=== PATIENT | male | born 1990 | race Caucasian/White ===

== ENCOUNTER 2025-02-18 05:34 | Emergency (ER) | payer BC, SELFPAY ==
--- OUTSIDE RECORDS SUMMARY | 2025-02-18 05:35 | XMS_ITS | Clinical Summary ---
Author Organization [facility] Address [address] [place] [id number] Care Team Providers Care Serging Machine Operator Name Role Phone Lissett Garcia MD Primary Care Prov ider Allergies No known active allergies Medications sertraline 100 mg tabletIndications :Anxiety disorder, unspecified type Take 1 Tablet (100 mg) by mouth once daily in the morning. 90 Tablet 1 09/19/19 25 Active methylphenidate ER (Concerta) 36 mg extended release tabletIndications :Attention deficit hyperactivity disorder (ADHD), unspecified ADHD type Take 2 Tablets (72 mg) by mouth once daily. 60 Tablet 11/30/19 25 Active methylphenidate 36 mg extended-release tabletIndications :Attention deficit hyperactivity disorder (ADHD), unspecified ADHD type Take 2 Tablets (72 mg) by mouth once daily. 60 Tablet 01/30/20 25 Active methylphenidate ER (Concerta) 36 mg extended release tabletIndications :Attention deficit hyperactivity disorder (ADHD), unspecified ADHD type Take 2 Tablets (72 mg) by mouth once daily. 60 Tablet 12/30/19 25 025 Discontinued Active Problems Problem Noted Date Diagnosed Date Anxiety disorder 09/18/2024 Autism spectrum disorder 06/05/2023 Controlled substance agreement signed 07/19/2021 Overview (07/19/2021): 07/19/21 Gladys Monzon MD/psychiatry Other specified attention de ficit hyperactivity disorder (ADHD) 07/05/2012 Severe episode of recurrent major depressive disorder, without psychotic features 07/05/2012 Resolved Problems Problem Noted Date Diagnosed Date Resolved Date Controlled substance agreement signed 03/18/2019 07/19/2021 Overview (03/18/2019): Signed 03/14/19 Gladys Monzon Psychiatry Bipolar disorder, mixed 02/21/201907/05 Encounters Date Type Department Care Team Description 01/29/2025 Refill [facility] [address] [place] [address] Gladys Monzon MD Refill Request (Methylphenidate) from Last 3 Months Immunizations Immunization Administration Dates Next Due Hepatitis B (Peds) 03/16/2000 Hepatitis B, Unspecified 10/13/2004,03/24/2004,0 01/30/2004,03/16/2000 Influenza Virus, Unspecified 04/02/2018,06/22/20 12,06/14/2008,05/11/2007 Influenza, IIV3 (Age 6-35 mos) 06/22/2012 Influenza, IIV3 (Age >=3 years) 06/14/2008 MMR 01/16/2004,03/16/2000 TD, UNSPECIFIED 01/16/2004 Td (Age >=7 Years) 01/16/2004 Tdap 12/24/2018 Family History Medical History Relation Name Comments Cancer Father Colonic polyp Father precancer Hypertension Father Diabetes Maternal Grandfather Diabetes Maternal Grandmother Skin cancer Mother Cancer Paternal Grandfather lung, w as a smoker Relation Name Status Comments Father Alive Maternal Grandfather Maternal Grandmother Mother Alive Paternal Grandfather Social History Tobacco Use Types Packs/Day Years Used Date Smoking Tobacco: Never Smokeless Tobacco: Never Tobacco Cessation:Counseling Given: Yes Alcohol Use Standard Drinks/Week Comments Not Currently 0 (1 standard drink = 0.6 oz pur e alcohol) PHQ-2 Answer Date Recorded PHQ-2 TOTAL SCORE 1 10/30/2024 Social Connections Answer Date Recorded Do you often feel lonely or isolated from those around you? 0 11/06/2024 Financial Resource Strain Answer Date R ecorded Difficulty of Paying Living Expenses 3 11/06/2024 Difficulty of Paying Living Expenses Not on file 11/06/2024 Food Insecurity Answer Date Recorded Do you worry your food will run out before you are able to buy more? 1 11/06/2024 Transportation Needs Answer Date Record ed Does lack of transportation keep you from medica l appointments? 1 11/06/2024 Does lack of transportation keep you from work, meetings or getting things that you need? 1 11/06/2024 Housing Stability Answer Date Recorded What is your housing situation today? 1 11/06/2024 Utilities Answer Date Recorded Do you have trouble paying f or utilities (for example, heat, electricity, water, phone)? 1 11/06/2024 Sex and Gender Information Value Date Recorded Sex Assigned at Not on file Legal Sex Male 8:43 AM CONSTRUCTION TRENCH DIGGER Gender Identity Not on file Sexual Orientation Not on file Obstetrics History Last Filed Vital Signs Vital Sign Reading Time Taken Comments Blood Pressure 118/78 11/06/2024 4:00 PM CDT Pulse 122 11/06/2024 4:00 PM CDT Temperature 36.5 C (97.7 F) 02/21/2019 9:18 AM CDT Respiratory Rate - - Oxygen Saturation 97% 11/06/2024 4:00 PM CDT Inhaled Oxygen Concentration - - Weight 142 kg (313 lb) 10/30/2024 11:44 AM CDT Height 184 cm (6' 0.44) 12/04/2023 2:24 PM CDT Body Mass Index 41.94 12/04/2023 2:24 PM CDT Plan of Treatment Upcoming Encounters Date Type Department Care Team (Late st Contact Info) Description 03/19/2025 9:45 AM CDT Office Visit [facility] [address] [place] [address] Gladys Monzon MD [address] [place] [address] Health Maintenance Due Date Last Done Comments COVID-19 vaccine series ( season) 2024 11/20/2020 BMI (ht and wt on same day) for age 18+ 12/03/2024 12/04/2023, 12/19/2019, 08/14/2019, Additional history exists Influenza Vaccine (#1) 2025 8, 06/22/2012, 06/22/2012, Additional history exists Depression screening for age 12+ 10/30/2025 10/30/2024, 10/30/2024, 09/18/2024, Additional history exists Tetanus booster 12/24/2028 12/24/2018, 12/31, 01/16/2004 Hepatitis B series for 19+ Completed 10/13, 03/24/2004, 01/30/2004, Additional history exists HIV for age 15-65 Completed 07/12/2022 Hepatitis C screening for age 18-79 Completed 07/12/2022 Pneumococcal series for age 6-49 Aged Out No longer eligible based on patient's age to complete this topic Procedures Procedure Name Priority Date/Time Associated Diagnosis Comments LC HIV-1/O/2, 4TH GENERATION Routine 07/12/2022 2:46 PM CONSTRUCTION TRENCH DIGGER Encounter for screening for HIV LC HCV ANTIBODY RFX TO QUANT PCR Routine 07/12/2022 2:46 PM CONSTRUCTION TRENCH DIGGER Need for hepatitis C screening test from Last 3 Months or Most Recently Relevant to Health Maintenance Results * LC HCV ANTIBODY RFX TO QUANT PCR (07/12/2022 2:46 PM CONSTRUCTION TRENCH DIGGER) HCV Ab <0.1 0.0 - 0.9 s/co ratio 07/15/2022 4:08 PM CONSTRUCTION TRENCH DIGGER [facility] Blood BLOOD SPECIMEN / Unknown Venipuncture / Unknown 07/12/2022 2:46 PM CONSTRUCTION TRENCH DIGGER 07/12/2022 2:46 PM CONSTRUCTION TRENCH DIGGER Narrative [facility] ([facility]) - 07/15/2022 4:08 PM CONSTRUCTION TRENCH DIGGER Performed at: [address] [place] [id number] Needle Polisher: Wilfredo Garcia MD, Phone: [phone] [facility] Final Resu lt [facility] ([facility]) [address] [place] [id number], * LC HIV-1/O/2, 4TH GENERATION (07/12/2022 2:46 PM CONSTRUCTION TRENCH DIGGER) HIV Scr 4th Gen Non Reactive Non Reactive 07/15/2022 3:07 AM CONSTRUCTION TRENCH DIGGER [facility] ([facility]) Comment: HIV Negative HIV-1/HIV-2 antibodies and HIV-1 p24 antigen were NOT detected. There is no laboratory evidence of HIV infection. Blood BLOOD SPECIMEN / Unknown Venipuncture / Unknown 07/12/2022 2:46 PM CONSTRUCTION TRENCH DIGGER 07/12/2022 2:46 PM CONSTRUCTION TRENCH DIGGER Narrative [facility] ([facility]) - 07/15/2022 3:07 AM CONSTRUCTION TRENCH DIGGER Performed at: [address] [place] [id number] Needle Polisher: Wilfredo Garcia MD, Phone: [phone] [facility] Final Resu lt [facility] ([facility]) [address] [place] [address], from Last 3 Months or Most Recently Relevant to Health Maintenance Insurance [facility] Care Teams Serging Machine Operator Relationship Specialty Start Date End Date Lissett Garcia MD [address] [place] [address] PCP - General Family Practice 10/30/24
--- OUTSIDE RECORDS SUMMARY | 2025-02-18 05:35 | XMS_ITS | Clinical Summary ---
Author Organization [facility] Address [address] [place] [id number] Care Team Providers Care Supply Requirements Officer Name Role Phone Kyaw Miller DO Primary Care Provider Allergies No known active allergies Medications lamoTRIgine (LAMICTAL) 25 MG tablet Active methylphenidate (RITALIN LA) 10 MG 24 hr capsule Take 72 mg by mouth Active Active Problems Problem Noted Date Diagnosed Date Bipolar disorder, current episode mixed, moderat e 08/16/2018 Autism spectrum disorder 09/14/2015 ADHD (attention deficit hyperactivity disorder) 09/14/2015 Immunizations Immunization Administration Dates Next Due Flu, Unspecified 04/02/2018,06/22/2012, 8,05/11/2007 HepB, Unspecified 10/13/2004,03/24/2004,01/30/20 04,03/16/2000 MMR (MMRII) 01/16/2004,03/16/2000 TDAP (Adacel,Boostrix) 12/24/2018 Td,adult,historic,unspecified 01/16/2004 Family History Medical History Relation Comments Diabetes Maternal Aunt Diabetes Maternal Grandfather Diabetes Maternal Grandmother Diabetes Maternal Uncle Relation Status Comments Maternal Aunt Maternal Grandfather Maternal Grandmother Maternal Uncle Social History Tobacco Use Types Packs/Day Years Used Date Smoking Tobacco: Passive Smo ke Exposure - Never Smoker Smokeless Tobacco: Never Alcohol Use Standard Drinks/Week Comments No 0 (1 standard drink = 0.6 oz pur e alcohol) Adolescent Education Answer Date Record ed Getting School Help Needed Not on file 04/16 Sex and Gender Information Value Date Recorded Sex Assigned at Not on file Legal Sex Male 4:37 AM TANK RIVETER Gender Identity Not on file Sexual Orientation Not on file Last Filed Vital Signs Vital Sign Reading Time Taken Comments Blood Pressure 150/84 11/12/2018 1:22 PM CDT Pulse - - Temperature 36.9 C (98.5 F) 11/12/2018 1:22 PM CDT Respiratory Rate 18 11/12/2018 1:22 PM CDT Oxygen Saturation 98% 11/12/2018 1:22 PM CDT Inhaled Oxygen Concentration - - Weight 125.2 kg (276 lb) 12/24/2018 3:36 PM CDT Height 183.6 cm (6' 0.3) 12/24/2018 3:36 PM CDT Body Mass Index 37.12 12/24/2018 3:36 PM CDT Plan of Treatment Not on file Insurance * Guarantor: EDITH BARBA Relation to Patient Date of Phone Billing Address Personal/Family [address] [place] [phone] [facility] Care Teams Supply Requirements Officer Relationship Specialty Start Date End Date Kyaw Miller DO PCP - General Internal Medicine 11/12/18
--- OUTSIDE RECORDS SUMMARY | 2025-02-18 05:35 | XMS_ITS | Clinical Summary ---
Author Organization [facility] Address [address] [place] [id number] Care Team Providers Care Pit Shoveler Name Role Phone Ruben, Primary Care Provider Unavailabl e Md Ruben Unavailable Unavailable Allergies No known active allergies Medications ARIPiprazole (ABILIFY) 5 mg oral tablet Take by mouth once daily. Active METHYLPHENIDATE HCL (CONCERTA ORAL) Take 72 mg by mouth. Active Miscellaneous Medical Supply Knee scooter for rental or purchase. Length of need is 8 weeks. Diagnosis his Lisfranc ligament tear 1 each 1 8 Active lamotrigine (LAMICTAL ORAL) Take by mouth. Active Social History Tobacco Use Types Packs/Day Years Used Date Smoking Tobacco: Never Smokeless Tobacco: Never Sex and Gender Information Value Date Recorded Sex Assigned at Not on file Legal Sex Male 8:10 AM CDT Gender Identity Not on file Sexual Orientation Not on file Last Filed Vital Signs Vital Sign Reading Time Taken Comments Blood Pressure 165/100 11/12/2018 10:54 AM CDT Pulse 120 11/12/2018 10:50 AM CDT Temperature 37.1 C (98.8 F) 11/12/2018 10:50 AM CDT Respiratory Rate 20 11/12/2018 10:50 AM CDT Oxygen Saturation 96% 11/12/2018 10:50 AM CDT Inhaled Oxygen Concentration - - Weight 128.4 kg (283 lb) 11/12/2018 10:50 AM CDT Height 190.5 cm (6' 3) 07/20/2017 3:43 PM CONSTRUCTION RIGGER Body Mass Index 35.37 07/20/2017 3:43 PM CONSTRUCTION RIGGER Plan of Treatment Health Maintenance Due Date Last Done Comments Hepatitis C Screening 1991 Anxiety Screening (SHIRLEY-2) 10/17/1992 Depression Assessment (PHQ-2) 10/17/1992 Adult Tetanus Booster 01/15/2014 01/16/2004 HPV Vaccine (1 - 3-dose SCDM series) 10/17/2018 COVID-19 Vaccine ( - 2023-2 5 season) 2024 Influenza Vaccine (#1) 2025 2, 06/14/2008 RSV Vaccines (1 - 1-dose 75+ series) 10/17/2066 Meningococcal B Vaccine Aged Out No l onger eligible based on patient's age to complete this topic Pneumococcal Vaccine Aged Out No long er eligible based on patient's age to complete this topic Insurance [employer] OPEN ACCESS/CHOICE [place]EE[place] [id number] Care Teams Pit Shoveler Relationship Specialty Start Date End Date None, PCP - General 07/20/17 None, PCP - Primary Care Clinic 07/20/17
[2025-02-18 05:41] VITALS: BP 166/103; PULSE 66; RESP 18; TEMP 36.7; O2SAT 94; BMI 38.7
--- NOTE | 2025-02-18 06:08 | ED.GENADULT ---
HPI - General Adult General Chief complaint: Abdominal Pain <Hanna Logan MD - Last Filed: 02/19/25 00:00> Stated complaint: abdominal pain <Hanna Logan MD - Last Filed: 02/19/25 00:00> Time Seen by Provider: 02/18/25 05:51 <Hanna Logan MD - Last Filed: 02/19/25 00:00> Source: patient <Hanna Logan MD - Last Filed: 02/19/25 00:00> Mode of arrival: ambulatory <Hanna Logan MD - Last Filed: 02/19/25 00:00> Limitations: no limitations <Hanna Logan MD - Last Filed: 02/19/25 00:00> History of Present Illness HPI narrative: 34-year-old male presents to the emergency department with a 5-1/2 hour history of abdominal pain in the left lower quadrant area. He also experiences urinary frequency and hesitancy but no dysuria. No prior history of kidney stones. Pain is dull and achy and constant but becomes sharp and crampy at times as well as accompanied by nausea and vomiting that comes in waves. No prior history of similar symptoms. No fevers. No trauma or injury. Bowel movement earlier tonight with no difficulty. No bloody stools. No sick contacts. No prior history of abdominal surgeries. Did not try any Tylenol, ibuprofen or other treatments. Was not able to give a urine sample in triage. Pain does not radiate. Reports is ROS is otherwise notable for no other systemic symptoms besides GI symptoms described above. Otherwise negative times 12 systems. Long-term medical history notable for ADHD only home meds are Concerta. Supposed to be taking Zoloft also but has been off of it for 2 weeks because he simply forgets. No known drug allergies. Nonsmoker. <Hanna Logan MD - Last Filed: 02/19/25 00:00> Related Data Home medications: Home Medications ?Medication ?Instructions ?Recorded ?Confirmed methylphenidate HCl 36 mg 72 mg PO QAM 11/23/24 02/18/25 tablet,extended release 24 hr methylphenidate HCl 54 mg 54 mg PO DAILY 11/23/24 11/23/24 tablet,extended release 24 hr sertraline 100 mg tablet 100 mg PO DAILY 11/23/24 11/23/24 Previous Rx's ?Medication ?Instructions ?Recorded tamsulosin 0.4 mg capsule (Flomax) 0.4 mg PO DAILY #15 caps 02/18/25 <Hanna Logan MD - Last Filed: 02/19/25 00:00> Allergies/adverse reactions: Allergies Allergy/AdvReac Type Severity Reaction Status Date / Time No Known Drug Allergies Allergy Verified 11/23/24 13:44 <Hanna Logan MD - Last Filed: 02/19/25 00:00> PFSH PFSH Social History: Social History Smoking Status: Never smoker Do you use any of these nicotine containing products: None How often do you have a drink containing alcohol: never AUDIT-C Alcohol total score: 0 Non-prescribed substance use: denies use <Hanna Logan MD - Last Filed: 02/19/25 00:00> Exam Const: Vital Signs, click to edit/add: Vital Signs - 24 hr 02/18/25 05:41 02/18/25 07:17 02/18/25 07:19 Temperature 98.1 F Pulse Rate 105 H Pulse Rate [Pulse Oximeter] 66 Respiratory Rate 18 Blood Pressure 147/83 H Blood Pressure [Le ft Upper Arm] 166/103 H Pulse Oximetry 94 97 Oxygen Delivery Me thod Room Air <Hanna Logan MD - Last Filed: 02/19/25 00:00> Vital Signs, click to edit/add: Vital Signs - 24 hr 02/18/25 05:41 02/18/25 07:17 02/18/25 07:19 Temperature 98.1 F Pulse Rate 105 H Pulse Rate [Pulse Oximeter] 66 Respiratory Rate 18 Blood Pressure 147/83 H Blood Pressure [Le ft Upper Arm] 166/103 H Pulse Oximetry 94 97 Oxygen Delivery Me thod Room Air <Kyaw Covington MD - Last Filed: 02/19/25 11:41> Documenting provider has reviewed patient's vital signs: yes <Hanna Logan MD - Last Filed: 02/19/25 00:00> Common normals: alert <MD Julius Obrien Last Filed: 02/19/25 00:00> Other: Mild distress due to pain, appears older than stated age. Mildly unkempt. Insight seems moderate. Does appear well nourished and well hydrated <MD Julius Obrien Last Filed: 02/19/25 00:00> HENMT: Common normals: normocephalic, moist oral mucous membranes and oropharynx normal <MD Julius Obrien Last Filed: 02/19/25 00:00> Head and scalp: normocephalic <MD Julius Obrien Last Filed: 02/19/25 00:00> Mouth: oral and palatal mucosa normal <MD Julius Obrien Last Filed: 02/19/25 00:00> Throat: posterior oropharynx normal <MD Julius Obrien Last Filed: 02/19/25 00:00> Eye: Common normals: conjunctivae normal <MD Julius Obrien Last Filed: 02/19/25 00:00> General eye: normal appearance of both eyes <MD Julius Obrien Last Filed: 02/19/25 00:00> Conjunctiva: conjunctiva(e) normal <MD Julius Obrien Last Filed: 02/19/25 00:00> Neck & C-Spine: Common normals: full ROM and no lymphadenopathy <MD Julius Obrien Last Filed: 02/19/25 00:00> General: normal visual inspection <MD Julius Obrien Last Filed: 02/19/25 00:00> Resp: Common normals: normal respiratory effort, no use of accessory muscles and clear to auscultation bilaterally <MD Julius Obrien Last Filed: 02/19/25 00:00> Effort & inspection: able to speak in complete sentences <MD Julius Obrien Last Filed: 02/19/25 00:00> Auscultation: clear to auscultation bilaterally <MD Julius Obrien Last Filed: 02/19/25 00:00> Cardio: Common normals: regular rate, regular rhythm, S1 normal heart sound, S2 normal heart sound and no murmurs <Hanna Logan MD - Last Filed: 02/19/25 00:00> Rate: regular rate <MD Julius Obrien Last Filed: 02/19/25 00:00> Rhythm: regular rhythm <MD Julius Obrien Last Filed: 02/19/25 00:00> Heart sounds: S1 normal and S2 normal <MD Julius Obrien Last Filed: 02/19/25 00:00> GI: Common normals: Normal to inspection, nondistended, normoactive bowel sounds present, soft to palpation, no hepatosplenomegaly and no masses <MD Julius Obrien Last Filed: 02/19/25 00:00> Palpation: soft and no hepatosplenomegaly <MD Julius Obrien Last Filed: 02/19/25 00:00> Other: Mildly tender to palpation of the left side but certainly no rebound tenderness or guarding. Pain which seemed nonfocal. <MD Julius Obrien Last Filed: 02/19/25 00:00> : Common normals: no CVA tenderness <MD Julius Obrien Last Filed: 02/19/25 00:00> Bladder/kidney exam: no CVA tenderness <MD Julius Obrien Last Filed: 02/19/25 00:00> Back & Pelvis: Common normals: no CVA tenderness and thoracic and lumbar spine normal to inspection <MD Julius Obrien Last Filed: 02/19/25 00:00> Extremity: Common normals: normal to inspection and normal capillary refill <MD Julius Obrien Last Filed: 02/19/25 00:00> Neuro: Common normals: moves all extremities <MD Julius Obrien Last Filed: 02/19/25 00:00> Sensorium/orientation: alert <MD Julius Obrien Last Filed: 02/19/25 00:00> Speech: speech normal <Hanna Logan MD - Last Filed: 02/19/25 00:00> Psych: Appearance: unkempt <Hanna Logan MD - Last Filed: 02/19/25 00:00> Attitude: engaged <Hanna Logan MD - Last Filed: 02/19/25 00:00> Insight: fair <MD Julius Obrien Last Filed: 02/19/25 00:00> Judgement: fair <Hanna Logan MD - Last Filed: 02/19/25 00:00> Skin: Common normals: no rashes or lesions noted <MD Julius Obrien Last Filed: 02/19/25 00:00> General skin exam: no rashes or lesions noted <MD Julius Obrien Last Filed: 02/19/25 00:00> Course Course ED Course: 34-year-old male with urinary urgency in left lower quadrant pain suspicious for distal ureteral stone. Cannot exclude diverticulitis, colitis, internal hernia, volvulus, bowel obstruction, pancreatitis, musculoskeletal etiology, amongst others. The patient know I really do need a urine sample in all I would like for him to continue to try to give 1. Will place peripheral IV, give a L of normal saline, Toradol and Zofran for symptom control. Typical intra-abdominal labs ordered. Once urinalysis can be viewed, this will likely help me decide between a CT scan with or without contrast. <Hanna Logan MD - Last Filed: 02/19/25 00:00> Reevaluation(s) Time of Reevaluation #1: 08:06 <Hanna Logan MD - Last Filed: 02/19/25 00:00> Reevaluation #1: Patient feeling much better after the Toradol and Zofran. He was finally able to give a urine sample after the 2 L of fluids. Tingling in his care because we did have a urine sample and based on some mild elevation of his LFTs which actually I do suspect is fatty liver, I was hesitant to proceed with a CT without contrast in case we needed further clarification of the digestive structures. With the urinalysis showing some hematuria and of course a little bit of dehydration I do think that proceeding without contrast is in order as his symptoms are highly suspicious for a distal ureter stone. CT ordered. Will hand over care to incoming day shift partner. <Hanna Logan MD - Last Filed: 02/19/25 00:00> Reevaluation #2: Nadya -- I received Americo in handoff at change of shift pending results of CT imaging. Pain was managed. I did review records and independently review non contrasted CT of abdomen and pelvis which showed what I would estimate to be a 2 mm stone at the ureteral vesicular junction. This should be passable. Discussed findings with Americo. Did order yet for Flomax prior to departure from the emergency department. <Kyaw Covington MD - Last Filed: 02/19/25 11:41> Vital Signs Vital signs: Initial Vital Signs Temperature 98.1 F 02/18/25 05:41 Temperature Source Temporal Artery Scan 02/18/25 05:41 Pulse Rate 66 02/18/25 05:41 Respiratory Rate 18 02/18/25 05:41 Blood Pressure 166/103 H 02/18/25 05:41 Blood Pressure Mean 124 H 02/18/25 05:41 Blood Pressure Position Sitting 02/18/25 05:41 Pulse Oximetry 94 02/18/25 05:41 Oxygen Delivery Method Room Air 02/18/25 05:41 Vital Signs Temperature 98.1 F 02/18/25 05:41 Pulse Rate 66 02/18/25 05:41 Respiratory Rate 18 02/18/25 05:41 Blood Pressure 166/103 H 02/18/25 05:41 Pulse Oximetry 94 02/18/25 05:41 Oxygen Delivery Method Room Air 02/18/25 05:41 Temperature 98.1 F 02/18/25 05:41 Pulse Rate 105 H 02/18/25 07:17 Respiratory Rate 18 02/18/25 05:41 Blood Pressure 147/83 H 02/18/25 07:19 Pulse Oximetry 97 02/18/25 07:17 Oxygen Delivery Method Room Air 02/18/25 05:41 <Hanna Logan MD - Last Filed: 02/19/25 00:00> Initial Vital Signs Temperature 98.1 F 02/18/25 05:41 Temperature Source Temporal Artery Scan 02/18/25 05:41 Pulse Rate 66 02/18/25 05:41 Respiratory Rate 18 02/18/25 05:41 Blood Pressure 166/103 H 02/18/25 05:41 Blood Pressure Mean 124 H 02/18/25 05:41 Blood Pressure Position Sitting 02/18/25 05:41 Pulse Oximetry 94 02/18/25 05:41 Oxygen Delivery Method Room Air 02/18/25 05:41 Vital Signs Temperature 98.1 F 02/18/25 05:41 Pulse Rate 66 02/18/25 05:41 Respiratory Rate 18 02/18/25 05:41 Blood Pressure 166/103 H 02/18/25 05:41 Pulse Oximetry 94 02/18/25 05:41 Oxygen Delivery Method Room Air 02/18/25 05:41 Temperature 98.1 F 02/18/25 05:41 Pulse Rate 105 H 02/18/25 07:17 Respiratory Rate 18 02/18/25 05:41 Blood Pressure 147/83 H 02/18/25 07:19 Pulse Oximetry 97 02/18/25 07:17 Oxygen Delivery Method Room Air 02/18/25 05:41 <Kyaw Covington MD - Last Filed: 02/19/25 11:41> Medications Administered Medications: Discontinued Medications Generic Name Dose Route Start Last Admin Trade Name Freq PRN Reason Stop Dose Admin Sodium Chloride 1,000 mls @ 1,000 mls/hr 02/18/25 06:03 02/18/25 07:17 0.9 % Sodium Chloride 1000 Ml IV 02/18/25 07:02 Infused .Q1H NATHANIEL Infusion Sodium Chloride 1,000 mls @ 1,000 mls/hr 02/18/25 07:12 02/18/25 08:45 0.9 % Sodium Chloride 1000 Ml IV 02/18/25 08:11 Infused .Q1H NATHANIEL Infusion Ketorolac Tromethamine 15 mg 02/18/25 06:02 02/18/25 06:11 Ketorolac 15 Mg/Ml Inj IVP 02/18/25 06:03 15 mg ONCE ONE Administration Ondansetron HCl 4 mg 02/18/25 06:02 02/18/25 06:10 Ondansetron 2 Mg/Ml Inj IVP 02/18/25 06:03 4 mg ONCE ONE Administration Tamsulosin HCl 0.4 mg 02/18/25 08:58 02/18/25 09:16 Tamsulosin Hcl 0.4 Mg Capsule PO 02/18/25 08:59 0.4 mg ONCE ONE Administration <Hanna Logan MD - Last Filed: 02/19/25 00:00> Discontinued Medications Generic Name Dose Route Start Last Admin Trade Name Norm PRN Reason Stop Dose Admin Sodium Chloride 1,000 mls @ 1,000 mls/hr 02/18/25 06:03 02/18/25 07:17 0.9 % Sodium Chloride 1000 Ml IV 02/18/25 07:02 Infused .Q1H NATHANIEL Infusion Sodium Chloride 1,000 mls @ 1,000 mls/hr 02/18/25 07:12 02/18/25 08:45 0.9 % Sodium Chloride 1000 Ml IV 02/18/25 08:11 Infused .Q1H NATHANIEL Infusion Ketorolac Tromethamine 15 mg 02/18/25 06:02 02/18/25 06:11 Ketorolac 15 Mg/Ml Inj IVP 02/18/25 06:03 15 mg ONCE ONE Administration Ondansetron HCl 4 mg 02/18/25 06:02 02/18/25 06:10 Ondansetron 2 Mg/Ml Inj IVP 02/18/25 06:03 4 mg ONCE ONE Administration Tamsulosin HCl 0.4 mg 02/18/25 08:58 02/18/25 09:16 Tamsulosin Hcl 0.4 Mg Capsule PO 02/18/25 08:59 0.4 mg ONCE ONE Administration <Kyaw Covington MD - Last Filed: 02/19/25 11:41> Medical Decision Making MDM Narrative Medical decision making narrative: See patient discharge plan for further discussion as below It does look like there is a small stone about drop into your bladder or already has entered your bladder. Would consider straining your urine over this next week. Generally stay well hydrated with water. I am sending in a prescription for tamsulosin also known as Flomax to your pharmacy. This can help with the spasm and pain. Take until your sure of resolution of the stone. Also take ibuprofen as needed for pain. Up to 800 mg per dose. From [facility] will be prescribed a small quantity of [place], an opiate, and Zofran as needed for nausea. Be seen for pain persisting another 5 days, uncontrolled pain, development of fever. <Kyaw Covington MD - Last Filed: 02/19/25 11:41> Medical Records Medical records reviewed: Yes I reviewed the patient's medical records <Kyaw Covington MD - Last Filed: 02/19/25 11:41> Lab Data Lab results reviewed: Yes I reviewed the patient's lab results <Hanna Logan MD - Last Filed: 02/19/25 00:00> Lab results narrative: Mild leukocytosis present. He also does have a slight left shift as well as hematuria but no obvious signs of infection. LFTs are very mildly elevated, certainly could be fatty liver. Renal function and electrolytes look good. Await CT findings. <Hanna Logan MD - Last Filed: 02/19/25 00:00> Labs: Lab Results 02/18/25 02/18/25 Range/Units 06:10 07:32 WBC 14.10 H (4.50-11.00) K/uL RBC 5.65 (4.30-5.90) m/uL Hgb 16.4 (13.5-17.5) gm/dL Hct 46.8 (37.0-53.0) % MCV 83 (80-100) fL MCH 29 (26-34) pg MCHC 35 (32-36) gm/dL RDW Coeff of [place] 11.9 (11.5-15.5) % Plt Count 251 (140-440) K/uL Neut % (Auto) 88.5 H (42.0-72.0) % Lymph % (Auto) 7.4 L (20-44) % [place] % (Auto) 3.5 (0.0-11.0) % Eos % (Auto) 0.1 (0.0-7.0) % Baso % (Auto) 0.3 (0.0-3.0) % Neut # (Auto) 12.50 H (1.7-7.0) K/uL Lymph # (Auto) 1.00 (0.90-2.90) K/uL [place] # (Auto) 0.50 (0.00-0.90) K/UL Eos # (Auto) 0.00 (0.00-0.50) K/uL Baso # (Auto) 0.00 (0.00-0.30) K/uL Abs Immat Gran (auto) 0.00 (0.00-0.30) K/uL Imm/Tot Granulo (auto) 0.2 % Sodium 136 (135-149) mmol/L Potassium 4.6 (3.6-5.1) mmol/L Chloride 101 (96-114) mmol/L Carbon Dioxide 23 (20-32) mmol/L Anion Gap 12 (7-15) mEq/L BUN 16 (5-24) mg/dL Creatinine 1.1 (0.5-1.5) mg/dL Estimated Creat Clear 114.16 Estimated GFR 91 ml/min Glucose 123 H (60-115) mg/dL Lactate 1.9 (0.5-1.9) mmol/L Calcium 9.8 (8.4-10.6) mg/dL Total Bilirubin 1.6 H (0.1-1.5) mg/dL AST 54 H (12-35) U/L ALT 96 H (4-50) U/L Alkaline Phosphatase 68 (40-150) U/L C-Reactive Protein 1.6 H (0.5-1.0) mg/dL Total Protein 7.8 (6.0-8.3) g/dL Albumin 4.8 (3.3-5.0) g/dL Lipase 50 (23-300) U/L Urine Color Yellow (Yellow) Urine Appearance Clear (Clear) Urine pH 6.0 (5.0-8.5) Ur Specific [place] 1.020 (1.000-1.030) Urine Protein 1+ A (Negative) Urine Glucose (UA) Negative (Negative) Urine Ketones 1+ A (Negative) Urine Blood 3+ A (Negative) Urine Nitrite Negative (Negative) Urine Bilirubin 1+ A (Negative) Urine Urobilinogen 0.2 (0.2-1.0) Ur Leukocyte Esterase Negative (Negative) Urine RBC 5-10 A (0-2) Urine WBC 0-2 (0-5) Ur Squamous Epith Cells Few (None-Few) Urine Bacteria None (None) Urine Mucus Moderate A (None) <Hanna Logan MD - Last Filed: 02/19/25 00:00> Lab Results 02/18/25 02/18/25 Range/Units 06:10 07:32 WBC 14.10 H (4.50-11.00) K/uL RBC 5.65 (4.30-5.90) m/uL Hgb 16.4 (13.5-17.5) gm/dL Hct 46.8 (37.0-53.0) % MCV 83 (80-100) fL MCH 29 (26-34) pg MCHC 35 (32-36) gm/dL RDW Coeff of [place] 11.9 (11.5-15.5) % Plt Count 251 (140-440) K/uL Neut % (Auto) 88.5 H (42.0-72.0) % Lymph % (Auto) 7.4 L (20-44) % [place] % (Auto) 3.5 (0.0-11.0) % Eos % (Auto) 0.1 (0.0-7.0) % Baso % (Auto) 0.3 (0.0-3.0) % Neut # (Auto) 12.50 H (1.7-7.0) K/uL Lymph # (Auto) 1.00 (0.90-2.90) K/uL [place] # (Auto) 0.50 (0.00-0.90) K/UL Eos # (Auto) 0.00 (0.00-0.50) K/uL Baso # (Auto) 0.00 (0.00-0.30) K/uL Abs Immat Gran (auto) 0.00 (0.00-0.30) K/uL Imm/Tot Granulo (auto) 0.2 % Sodium 136 (135-149) mmol/L Potassium 4.6 (3.6-5.1) mmol/L Chloride 101 (96-114) mmol/L Carbon Dioxide 23 (20-32) mmol/L Anion Gap 12 (7-15) mEq/L BUN 16 (5-24) mg/dL Creatinine 1.1 (0.5-1.5) mg/dL Estimated Creat Clear 114.16 Estimated GFR 91 ml/min Glucose 123 H (60-115) mg/dL Lactate 1.9 (0.5-1.9) mmol/L Calcium 9.8 (8.4-10.6) mg/dL Total Bilirubin 1.6 H (0.1-1.5) mg/dL AST 54 H (12-35) U/L ALT 96 H (4-50) U/L Alkaline Phosphatase 68 (40-150) U/L C-Reactive Protein 1.6 H (0.5-1.0) mg/dL Total Protein 7.8 (6.0-8.3) g/dL Albumin 4.8 (3.3-5.0) g/dL Lipase 50 (23-300) U/L Urine Color Yellow (Yellow) Urine Appearance Clear (Clear) Urine pH 6.0 (5.0-8.5) Ur Specific [place] 1.020 (1.000-1.030) Urine Protein 1+ A (Negative) Urine Glucose (UA) Negative (Negative) Urine Ketones 1+ A (Negative) Urine Blood 3+ A (Negative) Urine Nitrite Negative (Negative) Urine Bilirubin 1+ A (Negative) Urine Urobilinogen 0.2 (0.2-1.0) Ur Leukocyte Esterase Negative (Negative) Urine RBC 5-10 A (0-2) Urine WBC 0-2 (0-5) Ur Squamous Epith Cells Few (None-Few) Urine Bacteria None (None) Urine Mucus Moderate A (None) <Kyaw Covington MD - Last Filed: 02/19/25 11:41> Imaging Data CT scan - abdomen: Attestation: I have reviewed the pertinent imaging results. <Hanna Logan MD - Last Filed: 02/19/25 00:00> My impression: Very small left-sided UVJ stone <Hanna Logan MD - Last Filed: 02/19/25 00:00> Radiologist's impression: IMPRESSION: 1. Mild left-sided hydroureteronephrosis secondary to a 2 millimeter stone within the UPJ. Trace periureteral stranding. 2. Additional bilateral punctate nonobstructing renal stones. Please note that all CT scans at this facility use dose modulation, iterative reconstruction, and/or weight-based dosing when appropriate to reduce radiation dose to as low as reasonably achievable. Dictated by Kyaw Banks MD @ 02/18/2025 9:05:26 AM <Hanna Logan MD - Last Filed: 02/19/25 00:00> Discharge Plan Discharge Clinical Impression: Left ureteral calculus, Ureteral colic <Hanna Logan MD - Last Filed: 02/19/25 00:00> Patient Disposition: Home, Self-Care <Hanna Logan MD - Last Filed: 02/19/25 00:00> Condition: Improved <Hanna Logan MD - Last Filed: 02/19/25 00:00> Additional Instructions: It does look like there is a small stone about drop into your bladder or already has entered your bladder. Would consider straining your urine over this next week. Generally stay well hydrated with water. I am sending in a prescription for tamsulosin also known as Flomax to your pharmacy. This can help with the spasm and pain. Take until your sure of resolution of the stone. Also take ibuprofen as needed for pain. Up to 800 mg per dose. From [facility] will be prescribed a small quantity of [place], an opiate, and Zofran as needed for nausea. Be seen for pain persisting another 5 days, uncontrolled pain, development of fever. <Hanna Logan MD - Last Filed: 02/19/25 00:00> Prescriptions: New tamsulosin [Flomax] 0.4 mg capsule 0.4 mg PO DAILY Qty: 15 0RF No Action sertraline 100 mg tablet 100 mg PO DAILY methylphenidate HCl 54 mg tablet extended release 24hr 54 mg PO DAILY methylphenidate HCl 36 mg tablet extended release 24hr 72 mg PO QAM <Hanna Logan MD - Last Filed: 02/19/25 00:00> Follow Up/Referrals: Lissett Garcia MD [Primary Care Provider, Family Practice] <Hanna Logan MD - Last Filed: 02/19/25 00:00> Stand Alone Forms: MyHealth Info Instructions <Hanna Logan MD - Last Filed: 02/19/25 00:00>
[2025-02-18] MEDS: ONDANSETRON 2 MG/ML inj 4 MG IVP (06:10)
[2025-02-18 06:16] LABS: Hematocrit 46.8 % (37.0-53.0); Hemoglobin* 16.4 gm/dL (13.5-17.5); Immature Granulocytes Pct Auto 0.2 %; Mean Corpuscular HGB Conc 35 gm/dL (32-36); Mean Corpuscular Hemoglobin 29 pg (26-34); Mean Corpuscular Volume 83 fL (80-100); RDW Coefficient of Variation % 11.9 % (11.5-15.5); Red Blood Count 5.65 m/uL (4.30-5.90); White Blood Count* 14.10 K/uL (4.50-11.00)
[2025-02-18 06:21] LABS: Immature Granulocytes Abs Auto 0.00 K/uL (0.00-0.30); Lymphocytes Absolute Auto 1.00 K/uL (0.90-2.90); Slide Review Reflex No
[2025-02-18 06:26] LABS: Lactate* 1.9 mmol/L (0.5-1.9)
[2025-02-18 06:32] LABS: Chloride* 101 mmol/L (96-114)
[2025-02-18 06:33] LABS: Albumin* 4.8 g/dL (3.3-5.0); Potassium* 4.6 mmol/L (3.6-5.1); Sodium* 136 mmol/L (135-149)
[2025-02-18 06:35] LABS: Alanine Aminotransferase* 96 U/L (4-50); Aspartate Amino Transferase* 54 U/L (12-35); Blood Urea Nitrogen* 16 mg/dL (5-24); Creatinine* 1.1 mg/dL (0.5-1.5); Est. Creatinine Clearance* 114.16; Estimated Glomerular Filt Rate 91 ml/min
[2025-02-18 06:36] LABS: Alkaline Phosphatase* 68 U/L (40-150); Anion Gap 12 mEq/L (7-15); Bilirubin Total* 1.6 mg/dL (0.1-1.5); Calcium* 9.8 mg/dL (8.4-10.6); Carbon Dioxide* 23 mmol/L (20-32); Glucose* 123 mg/dL (60-115); Total Protein* 7.8 g/dL (6.0-8.3)
[2025-02-18 07:17] VITALS: PULSE 105; O2SAT 97
[2025-02-18 07:19] VITALS: BP 147/83
[2025-02-18 08:00] LABS: Appearance Urine Clear (Clear)
--- NOTE | 2025-02-18 08:03 | CRLHL7_ITS ---
For Patients: As a result of the Century Cures Act, medical imaging exams and procedure reports are released immediately into your electronic medical record. You may view this report before your referring provider. If you have questions, please contact your health care provider. INDICATION: .LLQ pain TECHNIQUE: CT abdomen and pelvis without contrast. COMPARISON: None. FINDINGS: Lower chest: Motion. ABDOMEN: Liver: Normal attenuation. Gallbladder and biliary: Sludge. Otherwise normal gallbladder. Normal caliber bile ducts. Spleen: Normal size and attenuation. Pancreas: The noncontrast pancreas is homogeneous in attenuation without peripancreatic inflammatory changes or ductal dilatation. Adrenal glands: Normal adrenal glands. Kidneys and ureters: Mild left-sided hydroureteronephrosis secondary to a 2 millimeter stone within the UPJ. Trace periureteral stranding. Additional bilateral punctate nonobstructing renal stones. GI tract: The stomach is relatively decompressed. Normal caliber small and large bowel loops. Normal appendix. Vascular structures: Normal caliber abdominal aorta. Lymph nodes: No lymphadenopathy in the abdomen or pelvis by size criteria. Peritoneum: No free air, free fluid, or focal drainable fluid collection. PELVIS: Genitourinary system: Mild circumferential wall thickening of the urinary bladder potentially reactive. Normal-sized prostate. SKELETAL STRUCTURES AND SOFT TISSUES: Vertebral body hemangiomas. Transitional lumbosacral anatomy. IMPRESSION: 1. Mild left-sided hydroureteronephrosis secondary to a 2 millimeter stone within the UPJ. Trace periureteral stranding. 2. Additional bilateral punctate nonobstructing renal stones. Please note that all CT scans at this facility use dose modulation, iterative reconstruction, and/or weight-based dosing when appropriate to reduce radiation dose to as low as reasonably achievable. Dictated by Kyaw Banks MD @ 02/18/2025 9:05:26 AM (Electronically Signed)
[2025-02-18] MEDS: TAMSULOSIN HCL 0.4 MG CAPSULE PO (09:16)
== END 2025-02-18 09:17 | disposition home or self-care (01) ==
PROVIDERS: Emergency Provider Family Medicine; PCP Student in an Organized Health Care Education/Training Program
DX: N23 Unspecified renal colic (principal)
CPT/HCPCS: 36415; 51798; 74176; 80053; 81001; 81003; 83605; 83690; 85025; 86140; 96374; 96375; 99284; A9270; J1885; J2405; J7030